=== PATIENT | male | born 1945 | race Caucasian/White ===

== ENCOUNTER → 2018-07-06 | Outpatient (REF) | payer MEDICARE, OTHER ==
[2018-07-06 14:14] LABS: FREE T4 0.81 NG/DL (0.76-1.46); RHEUMATOID FACTOR QUANT < 10.0 IU/ML (<15.0)
[2018-07-06 14:15] LABS: FOLATE 9.3 NG/ML; VITAMIN B12 LEVEL 392 PG/ML
[2018-07-08 13:46] LABS: ALBUMIN 4.07 GM/DL (3.29-5.55); ALBUMIN % 58.2 % (55.8-66.1); ALPHA-1-GLOBULIN % 3.8 % (2.9-4.9); ALPHA-1-GLOBULINS 0.27 GM/DL (0.17-0.41); ALPHA-2-GLOBULINS 0.76 GM/DL (0.42-0.99); ALPHA-2-GLOBULINS % 10.8 % (7.1-11.8); BETA-1-GLOBULINS 0.49 GM/DL (0.28-0.60)
[2018-07-08 13:47] LABS: BETA-2-GLOBULINS 0.31 GM/DL (0.19-0.55); BETA-2-GLOBULINS % 4.4 % (3.2-6.5); GAMMA GLOBULIN % 15.8 % (11.1-18.8); GAMMA GLOBULINS 1.11 GM/DL (0.65-1.58)
[2018-07-09 08:07] LABS: ANTINUCLEAR ANTIBODIES DIRECT Negative (Negative); VITAMIN B1 LEVEL WHOLE BLOOD 110.3 nmol/L (66.5-200.0); VITAMIN B6,PYRIDOXAL PHOSPHATE 7.9 ug/L (5.3-46.7); VITAMIN E(ALPHA TOCOPHEROL) 10.1 mg/L (9.0-29.0); VITAMIN E(GAMMA TOCOPHEROL) 1.5 mg/L (0.5-4.9)
[2018-07-13 10:26] LABS: DRVV SCREEN 45.1 SEC
[2018-07-13 10:28] LABS: PTT LUPUS TYPE ANTICOAG SCREEN 1.1 (0-1.2)
== END ==
LOC: M LABNEURO 09:24
PROVIDERS: ATTEND Psychiatry & Neurology Neurology
DX: G62.9 Polyneuropathy, unspecified (principal); G25.81 Restless legs syndrome

== ENCOUNTER 2020-01-17 13:26 | Inpatient (IN) | payer MEDICARE, BC ==
[~2020-01-17] VITALS: Ht 172.7 cm; Wt 110.0 kg
[2020-01-17 14:07] LABS: BASO % 0.7 % (0.0-1.0); EOS # 0.4 10^3/uL (0.0-0.5); EOS % 6.5 % (0.0-3.0); HEMATOCRIT 47.5 % (42.0-52.0); LYMPH # 1.1 10^3/uL (1.5-5.0); LYMPH % 19.2 % (24.0-44.0); MEAN CORPUSCULAR HEMOGLOBIN 27.5 pg (27.0-33.0); MEAN CORPUSCULAR HGB CONC 31.6 g/dl (32.0-36.5); MONO # 0.4 10^3/uL (0.0-0.8); MONO % 7.9 % (0.0-5.0); NEUTROPHILS # 3.6 10^3/uL (1.5-8.5); NEUTROPHILS % 65.3 % (36.0-66.0); PLATELET COUNT, AUTOMATED 175 10^3/uL (150-450); RED BLOOD COUNT 5.46 10^6/uL (4.30-6.10); WHITE BLOOD COUNT 5.6 10^3/uL (4.0-10.0)
[2020-01-17 14:36] LABS: BLOOD UREA NITROGEN 21 MG/DL (7-18); CALCIUM LEVEL 8.9 MG/DL (8.8-10.2); CARBON DIOXIDE LEVEL 29 MEQ/L (21-32); CHLORIDE LEVEL 109 MEQ/L (98-107); CK-MB VALUE MASS 3.5 NG/ML (<3.6); CPK CREATINE PHOSPHOKINASE 208 U/L (39-308); CREATININE FOR GFR 1.27 MG/DL (0.70-1.30); GLUCOSE, FASTING 147 MG/DL (70-100); MAGNESIUM LEVEL 2.1 MG/DL (1.8-2.4); MB/CK RELATIVE INDEX 1.68 (< OR =4); SODIUM LEVEL 142 MEQ/L (136-145); TROPONIN I < 0.02 NG/ML (< 0.10)
--- NOTE | 2020-01-17 15:14 | REP ---
Clinical: Acute chest pain . Comparison: None . Findings: The mediastinum and cardiac silhouette are stable and within normal limits for portable technique. The lung gonsalez are clear without acute consolidation, effusion, or pneumothorax. Skeletal structures are intact. Impression: No acute cardiopulmonary process appreciated. Electronically Signed by Watson Govea MD 01/17/2020 03:05 P
[2020-01-17] MEDS ORDERED: PRAV20TA2 PO (15:46)
[2020-01-17] MEDS ORDERED: METF-839 PO (15:46)
[2020-01-17] MEDS ORDERED: IBUP80TA PO (15:46)
[2020-01-17] MEDS ORDERED: CITA20TA7 PO (15:46)
[2020-01-17] MEDS ORDERED: AZOP0.2S OU (15:46)
[2020-01-17] MEDS ORDERED: BYST2.5T2 PO (15:46)
[2020-01-17] MEDS ORDERED: ROPI4TAB3 PO (15:46)
[2020-01-17] MEDS ORDERED: DOXA1TAB67 PO (15:46)
[2020-01-17] MEDS ORDERED: TRAV04OPD OU (15:46)
[2020-01-17] MEDS ORDERED: MIRA0.5T PO (15:46)
[2020-01-17] MEDS ORDERED: MAGN400C2 PO (15:46)
[2020-01-17] MEDS ORDERED: FINA5TAB2 PO (15:46)
[2020-01-17] MEDS ORDERED: BYST5TAB2 PO (17:11)
--- NOTE | 2020-01-17 17:58 | ECGEPIP ---
[facility] - ED Test Date: 2020-01-17 Pat Name: ISIAH RODRIGUEZ Department: Room: - Gender: Male Ship Steward: : 1945 Requested By: NEGRA SMITH Order Number: [id number] Reading MD: Yaima Adames Measurements Intervals [place] Rate: 34 P: 1 PA: 332 QRS: -55 QRSD: 117 T: 21 QT: 487 QTc: 368 Interpretive Statements SECOND DEGREE AV BLOCK TYPE II IVCD POSSIBLE LEFT ATRIAL ENLARGEMENT MARKED LEFT AXIS DEVIATION ANTEROSEPTAL MYOCARDIAL INFARCTION, PROBABLY OLD CLINICAL CORRELATION Electronically Signed on 01-17-2020 17:57:53 EDT by Yaima Adames
--- NOTE | 2020-01-17 19:10 | HPEPDOC ---
[facility] Medical History & Physical Date of Admission Jan 17, 2020 Date of Service: Jan 17, 2020 Attending Physician: BRITTA KNOWLES MD History and Physical CHIEF COMPLAINT: Bradycardia HISTORY OF PRESENT ILLNESS: Patient is a 74-year-old male with history of diabetes type 2, hyperlipidemia, hypertension, glaucoma, anxiety, back pain, RLS, BPH who was sent in by primary for bradycardia. Patient was in his usual state of health until 3 weeks prior to admission when, due to leg swelling and shortness of breath, was sent to [facility] for echo and EKG by his primary physician which occurred 2 days prior to admission. At that time reportedly, patient was found to have low heart rate and was told to take half of his Nebivolol. Patient was also told that he is to have a follow-up EKG. . Patient went in for follow-up EKG on day of admission was found to have a low heart rate. Patient was referred to the emergency room for further evaluation and treatment. Patient denies any symptoms including fever, chills, dizziness/lightheadedness, cough, sore throat, chest pain, shortness of breath, nausea, vomiting, abdominal pain, dysuria, diarrhea, leg pain or leg swelling. Of note, patient states that he was told he had a low heart rate in the past. PAST MEDICAL HISTORY: 1. Diabetes type 2 2. Hypertension. 3. Hyperlipidemia. 4. RLS. 5. Chronic back pain 6. Glaucoma. 7. Anxiety. 8. BPH PAST SURGICAL HISTORY: 1. Colectomy with colostomy status post colostomy reversal. 2. Hernia repair. 3., Fistula surgery. SOCIAL HISTORY: Marital status: . Resides in:, Lives with Tobacco use: Former smoker, smokes cigars once in a while ETOH: Occasional alcohol Illicit drug use: Denies any illicit drug use FAMILY HISTORY: ? Familial polyposis, hypertension, diabetes ALLERGIES: Please see below. REVIEW OF SYSTEMS: All pertinent positives and negatives documented as per HPI. All other reviewed ROS negative HOME MEDICATIONS: Please see below. PHYSICAL EXAMINATION: VITAL SIGNS: See below GENERAL APPEARANCE: Well-developed, well-nourished male laying in stretcher, pleasant on interview HEENT: PERRLA, EOMI, OP clear. CARDIOVASCULAR: Valente, normal S1/2 no MRG appreciated. LUNGS: CTA B/L, W/R/R. ABDOMEN: Soft, nontender, nondistended, large midline scar EXTREMITIES: Intact distal pulses, no edema NEUROLOGICAL: Normal speech, no focal deficits appreciated PSYCHIATRIC: AAO 3, normal mood LABORATORY DATA: See below. IMAGING: CXR (my read): clear CP angles, no acute cardiopulmonary disease identified EKnd degree AV block, mobitz type II MICROBIOLOGY: Please see below. ASSESSMENT: Patient is a 74-year-old male with history of diabetes type 2, hyperlipidemia, hypertension, glaucoma, anxiety, back pain, RLS, BPH who was sent in by primary for bradycardia down to 30's with EKG showing 2nd degree heart block, mobitz type II. Pt remains asymptomatic and is scheduled for pacemaker placement tomorrow. . PLAN: #Bradycardia due to secondary heart block, Mobitz type II Admit to inpatient with telemetry Hold beta loren Status post EKG Plan for OR for pacemaker placement tomorrow Atropine, if needed cardiology consult Nothing by mouth after midnight. IVFs #Diabetes Fingerstick glucose Insulin sliding scale ADA/cardiac diet #HTN Trend BP Continue home meds as needed. #HLD Continue home meds #Glaucoma. Continue home meds #Anxiety. Continue home meds #RLS Continue home meds #BPH Continue home meds #Chronic back pain. Continue to monitor Tylenol as needed Vital Signs Vital Signs Date Time Temp Pulse Resp B/P (MAP) Pulse Ox O2 Delivery O2 Flow Rate FiO2 01/17/20 18:11 55 94 01/17/20 15:18 96.8 16 148/86 (106) Room Air Laboratory Data Labs 24H Laboratory Tests 2 01/17/20 13:43: Immature Granulocyte % (Auto) 0.4, Neutrophils (%) (Auto) 65.3, Lymphocytes (%) (Auto) 19.2L, Monocytes (%) (Auto) 7.9H, Eosinophils (%) (Auto) 6.5H, Basophils (%) (Auto) 0.7, Neutrophils # (Auto) 3.6, Lymphocytes # (Auto) 1.1L, Monocytes # (Auto) 0.4, Eosinophils # (Auto) 0.4, Basophils # (Auto) 0.0, Nucleated Red Blood Cells % (auto) 0.0, Anion Gap 4L, Glomerular Filtration Rate 59.0, Calcium Level 8.9, Magnesium Level 2.1, Total Creatine Kinase 208, Creatine Kinase MB 3.5, Creatine Kinase MB Relative Index 1.68, Troponin I < 0.02, Thyroid Stimulating Hormone (TSH) 2.310 CBC/BMP Laboratory Tests 01/17/20 13:43 Home Medications Scheduled Brinzolamide (Azopt) 1% 10ML Drops.susp, 1 DROP OU BID Citalopram Hydrobromide (Citalopram HBr) 20 Mg Tablet, 20 MG PO DAILY Doxazosin Mesylate (Doxazosin) 4 Mg Tablet, 4 MG PO QHS Finasteride (Finasteride) 5 Mg Tablet, 5 MG PO DAILY Magnesium Oxide (Magnesium) 400 Mg Capsule, 400 MG PO DAILY Metformin HCl (Metformin HCl) 500 Mg Tablet, 500 MG PO BID Nebivolol HCl (Bystolic) 5 Mg Tablet, 2.5 MG PO DAILY Pramipexole Di-HCl (Mirapex) 0.5 Mg Tablet, 0.5 MG PO DAILY Pravastatin Sodium (Pravastatin Sodium) 20 Mg Tablet, 20 MG PO QHS Ropinirole HCl (Ropinirole HCl) 4 Mg Tablet, 4 MG PO QHS Travoprost (Travatan Z) 0.004% 2.5ML Drops, 1 DROP OU QHS Scheduled PRN Ibuprofen (Ibuprofen) 800 Mg Tablet, 800 MG PO TID PRN for PAIN Allergies Coded Allergies: amlodipine (Verified Allergy, Intermediate, LEG SWELLING, 01/17/20) hydrochlorothiazide (Verified Allergy, Intermediate, LEG SWELLING, 01/17/20) valsartan (Verified Allergy, Intermediate, LEG SWELLING, 01/17/20) A-FIB/CHADSVASC A-FIB History Current/History of A-Fib/PAF?: No BRITTA KNOWLES MD Jan 17, 2020 18:59
[2020-01-17] MEDS ORDERED: GLUCAGON INJ 1MG VIAL SC PRN (19:30)
[2020-01-17] MEDS ORDERED: DEXTROSE 50% 50 ML SYRINGE IV PRN (19:30)
[2020-01-17] MEDS ORDERED: GLUCOSE 4GM CHEW TABLET PO PRN (19:30)
[2020-01-17] MEDS: HumaLOG INSULIN (NovoLOG) PER UNIT SC SCH (21:00)
[2020-01-17] MEDS: BRINZOLAMIDE 1 % OPHTH SUSP (AZOPT) 10ML OU SCH (21:19)
[2020-01-17] MEDS: LATANOPROST 0.005% OPHTH SOLN 2.5 ML OU SCH (21:20)
[2020-01-17] MEDS: rOPINIRole 2MG TAB PO SCH (21:20)
[2020-01-17] MEDS: PRAVASTATIN 20 MG TAB PO SCH (21:20)
[2020-01-17 22:55] VITALS: BP 146/64
--- NOTE | 2020-01-17 23:50 | CR ---
DATE OF CONSULTATION: 01/17/2020 CARDIOLOGY CONSULTATION REPORT REFERRING INDIVIDUAL: James Milligan, Physician Floor Renovator (verbal request for cardiology consultation by James Milligan Physician Floor Renovator for Mobitz type II second-degree AV block). REASON FOR CONSULTATION: Mobitz type II second-degree AV block. HISTORY OF PRESENT ILLNESS: Mr. Ousmane Unger is a pleasant 74-year-old man with systemic hypertension, obesity, hyperlipidemia, and type 2 diabetes. About 2 weeks ago, he sought medical attention for exertional dyspnea and edema in both legs. He tells me he was placed on a water pill and that resolved his dyspnea and the swelling in his legs. He has been reporting fatigue and tiredness, especially with activity. No presyncope or syncope. No orthostatic lightheadedness. No chest pain or discomfort with or without activity. No palpitations. No embolic events. No intermittent claudication. When he went to see his doctor about 2 weeks ago, he was also noted to have a slow heart rate and an echocardiogram Doppler was ordered and a followup ECG. He was told to reduce the dosage of Bystolic from 5 mg daily to 2.5 mg daily, which he did at that time. He was in for a followup with his provider today and was noted to have a heart rate in the 30s. His last dose of Bisoprolol was yesterday morning (2.5 mg). In the emergency room, he had an electrocardiogram showing sinus rhythm with Mobitz type II second-degree atrioventricular (AV) block with a heart rate of 34 beats per minute (bpm). PAST MEDICAL AND SURGICAL HISTORY: Obesity, type 2 diabetes, systemic hypertension, hyperlipidemia, restless leg syndrome, chronic back pain, glaucoma, anxiety, benign prostatic hypertrophy, colectomy with colostomy, status post colostomy reversal. Hernia repair. Fistula surgery. SOCIAL HISTORY: . Lives with his . Former cigarette smoker. Smokes cigars once in a while. Occasional alcohol. No illicit drug use. FAMILY HISTORY: Systemic hypertension, diabetes, question familial polyposis. REVIEW OF SYSTEMS. Review of systems as per history of the present illness above. All other review of systems questions negative. ADVERSE DRUG REACTIONS: AMLODIPINE, VALSARTAN, HYDROCHLOROTHIAZIDE. MEDICATIONS PRIOR TO ADMISSION: - Azopt one drop both eyes twice a day - citalopram 20 mg by mouth daily - doxazosin 4 mg nightly - finasteride 5 mg daily - ibuprofen 800 mg by mouth three times a day as needed - magnesium oxide 400 mg daily - metformin 500 mg twice a day - nebivolol 2.5 mg daily (last dose yesterday morning) - pramipexole 0.5 mg daily - pravastatin 20 mg nightly - ropinirole 4 mg nightly - travoprost 0.004% one drop both eyes nightly PHYSICAL EXAMINATION: Pleasant obese man who appears his chronologic age, who is not in any respiratory or psychologic distress. Height 68 inches, weight 102.7 kg, body mass index (BMI) 34.4. Temperature 97.9, pulse 56, respiratory rate 18, blood pressure 188/80, oxygen (O2) saturation 95% on room air. No conjunctival pallor, scleral icterus, or xanthomas. Teeth and oral mucosa were not examined due to patient wearing mask for COVID-19 protection. Jugular venous pulsations were at 3 cm. Trachea midline. No palpable thyroid. No nail bed clubbing, cyanosis, or splinter hemorrhages. Stasis dermatitis was present on the skin of both legs. No skin pallor or icterus. Oriented to person, place and time. Mood and affect normal. Curvature of the spine normal. Gait not appropriate to test at this time (patient on bedrest). Gross motor strength and tone appeared normal. No muscle atrophy, fasciculations, or tremors. Respiratory expansion effort was good. No crackles or wheezes. No palpable apex beat. No left parasternal lifts, heaves, thrills, or palpable heart sounds. First heart sound was decreased in intensity. Second heart sound was normal. No S3 or S4. No murmurs appreciated. Carotids were normal in volume and contour and without bruits. No palpable abdominal aorta. No abdominal bruits. Femoral pulses normal. Pedal pulses normal. Trace pitting edema in the distal part of both legs pretibial. No varicose veins. Abdomen was obese, soft, nontender with normal bowel sounds. No hepatosplenomegaly or other organomegaly. Liver span difficult to assess due to abdominal obesity. Stool for occult blood not presently indicated. INVESTIGATIONS: Electrocardiogram 01/17/2020 at 1345 hours shows sinus rhythm with Mobitz type II second-degree AV block with mostly 2:1 AV conduction, ventricular rate 34 beats per minute. QS complexes V1 to V5 suggestive of old anterior wall myocardial infarct. Moderate nonspecific QRS widening. Marked left axis deviation. I have independently visualized the patient's portable AP chest x-ray acquired 01/17/2020 at 2:57 p.m. Appearance of cardiomegaly despite the portable AP technique. No pulmonary vascular redistribution. No interstitial or alveolar edema. No pleural effusions. No pneumothorax. Laboratory work 01/17/2020 at 1343 hours was reviewed: WBC 5.6, hemoglobin 15.0, hematocrit 47.5, platelets 175. Sodium 142, potassium 4.0, chloride 109, CO2 of 29, BUN 21, creatinine 1.27, estimated GFR of 59.0, glucose 147, magnesium 2.1, calcium 8.9, CPK 208, CPK-MB 3.5, troponin I less than 0.02, TSH 2.310. ASSESSMENT AND RECOMMENDATIONS: 1. Mobitz type II second-degree AV block. He has been on a very low dose of beta-loren and has not had any since yesterday morning. I do not believe that the patient's very low dose of beta loren would be responsible for the patient's ongoing Mobitz type II second-degree AV block. He has had recent symptoms suggestive of heart failure and reports exertional fatigue. I explained the second-degree heart block to the patient and explained that this carries with it an increased risk for developing syncope, as well as increased risk of sudden cardiac . Treatment with pacemaker was explained to the patient, including the option of no pacemaker (increased risk of syncope and sudden cardiac without a pacemaker). Risks of pacemaker implantation were explained to the patient, including, but not all inclusive, infection, 1-2%, pneumothorax (1%), bleeding, poor wound healing, lead dislodgement, cardiac dysrhythmias, adverse drug reaction, and cardiac perforation with cardiac tamponade (08/999). The patient was agreeable to undergo implantation of a permanent dual-chamber pacemaker and the plan will be to do this tomorrow afternoon. 2. Systemic hypertension, uncontrolled systolic blood pressure with controlled diastolic blood pressure. At the moment, his antihypertensive medication (Bystolic) is on hold because of Mobitz type II second-degree AV block. He lists adverse drug reactions with amlodipine (leg swelling), hydrochlorothiazide as part of Exforge HCT resulting in leg swelling, valsartan as part of Exforge HCT with a complaint of leg swelling. Once the patient has a permanent pacemaker, the blood pressure control issue can be reassessed. I doubt very much that he is actually truly allergic to valsartan or hydrochlorothiazide. I suspect his complaint of leg swelling with these agents was the calcium channel loren component of Exforge HCT. 3. Hyperlipidemia. Patient is presently on a carbohydrate-consistent diet. 4. Abnormal ECG. ECG findings as described above.
[2020-01-18] VITALS (10 sets, daily range): BP systolic 138–188; BP diastolic 68–80
[2020-01-18] MEDS ORDERED: NS 1,000 ML IV SCH
[2020-01-18] MEDS ORDERED: LR 1,000 ML IV SCH (06:00)
[2020-01-18] MEDS: PRAMIPEXOLE 0.25 MG TAB PO SCH (08:32)
[2020-01-18] MEDS: FINASTERIDE 5 MG TAB PO SCH (08:32)
[2020-01-18] MEDS: HumaLOG INSULIN (NovoLOG) PER UNIT SC SCH ×4 (08:32→20:05)
[2020-01-18] MEDS: CitaloPRAM (CeleXA) 20 MG TAB PO SCH (08:32)
[2020-01-18] MEDS: BRINZOLAMIDE 1 % OPHTH SUSP (AZOPT) 10ML OU SCH ×2 (08:33→22:03)
[2020-01-18] MEDS ORDERED: MUPIROCIN 2% OINT 22 GM TUBE As Ordered ONE (12:53)
[2020-01-18] MEDS ORDERED: LIDOCAINE 1% SDV 30ML VIAL As Ordered ONE (12:53)
[2020-01-18] MEDS ORDERED: VANCOMYCIN 1000MG/20ML VIAL As Ordered ONE ×2 (12:54→16:54)
[2020-01-18] MEDS ORDERED: ISOVUE-300 61% 50ML VIAL As Ordered ONE (12:54)
[2020-01-18] MEDS ORDERED: LIDOCAINE 2% 100MG/5ML SDV (FOR ANES.) As Ordered ONE (13:44)
[2020-01-18] MEDS ORDERED: ONDANSETRON 4MG/2ML VIAL As Ordered ONE (13:44)
[2020-01-18] MEDS ORDERED: MIDAZOLAM INJ 2MG/2ML VIAL (J2250 PER 1MG) As Ordered ONE (13:44)
[2020-01-18] MEDS ORDERED: propofoL 200 MG/20 ML VIAL As Ordered ONE (13:44)
[2020-01-18] MEDS ORDERED: ceFAZolin 2 GM/D5W 50 ML IV BAG (J0690 PER 500MG) As Ordered ONE (14:03)
[2020-01-18] MEDS ORDERED: ceFAZolin SOD 2 GM in IV 1 EA IV ONE (14:30)
[2020-01-18] MEDS ORDERED: KETAMINE HCL 200 MG/20 ML VIAL As Ordered ONE (15:01)
[2020-01-18] MEDS ORDERED: ATROPINE SULF 0.4 MG/ML 1ML VIAL (J0461) As Ordered ONE (15:39)
[2020-01-18] MEDS ORDERED: PHENYLephrine HCL 500 MCG/5 ML (100MCG/ML) SYRINGE (J2370) As Ordered ONE (15:59)
--- NOTE | 2020-01-18 16:55 | REP ---
Clinical: Pacemaker placement. Technique: Intraoperative fluoroscopic imaging using portable C-arm technique. Findings: Dual lead pacemaker identified in satisfactory position. Total fluoroscopic time 6 minutes 43 seconds. Impression: Status post pacemaker placement. Electronically Signed by Watson Govea MD 01/18/2020 04:47 P
--- NOTE | 2020-01-18 17:23 | REP ---
Portable chest x-ray: Sitting AP view. History: Post pacemaker insertion. Comparison chest x-ray January 17, 2020. Findings: A bipolar pacemaker is seen in the right heart via the left side. Skin eboni are noted adjacent to the power plant in the left subclavicular soft tissues. There is no evidence of pneumothorax or hydrothorax. Cardiomediastinal silhouette is unchanged and unremarkable. No infiltrate is seen. Impression: Pacemaker in place. No complications seen. Electronically Signed by Sae Greene MD 01/18/2020 05:14 P
[2020-01-18] MEDS ORDERED: ACETAMINOPHEN TAB 650MG DOSE (2X325MG) PO PRN (17:30)
[2020-01-18] MEDS ORDERED: **hydrALAZINE** 10 MG TAB PO ONE (19:00)
--- NOTE | 2020-01-18 20:06 | IPNPDOC ---
Date Seen The patient was seen on 01/18/20. Progress Note SUBJECTIVE: Patient seen and examined at bedside. Plan for patient to go for placement today. Patient denies any complaints. Denies any symptoms including dizziness, lightheadedness, fevers, chills, chest pain, shortness of breath, nausea, vomiting, abdominal pain. OBJECTIVE PHYSICAL EXAMINATION: VITAL SIGNS: Please see below. GENERAL APPEARANCE: Well-developed, well-nourished male sitting up in bed, pl easant on interview CARDIOVASCULAR: Valente, normal S1/2 no MRG appreciated. LUNGS: CTA B/L, W/R/R. ABDOMEN: Soft, nontender, nondistended, large midline scar EXTREMITIES: Intact distal pulses, no edema NEUROLOGICAL: Normal speech, no focal deficits appreciated PSYCHIATRIC: AAO3, normal mood LABORATORY DATA, IMAGING STUDIES, MICROBIOLOGY: Please see below. ASSESSMENT AND PLAN: Patient is a 74-year-old male with history of diabetes type 2, hyperlipidemia, hypertension, glaucoma, anxiety, back pain, RLS, BPH who was sent in by primary for bradycardia down to 30's with EKG showing 2nd degree heart block, mobitz type II. Pt remains asymptomatic and is scheduled for pacemaker placement today. Pt doing well and awaiting pacemaker. . PLAN: #Bradycardia due to secondary heart block, Mobitz type II Admit to inpatient with telemetry Hold beta loren Status post EKG Plan for OR for pacemaker placement later today Atropine, if needed cardiology consult Nothing by mouth after midnight. IVFs #Diabetes Fingerstick glucose Insulin sliding scale ADA/cardiac diet #HTN Trend BP Continue home meds as needed. #HLD Continue home meds #Glaucoma. Continue home meds #Anxiety. Continue home meds #RLS Continue home meds #BPH Continue home meds #Chronic back pain. Continue to monitor Tylenol as needed DVT PPX: heparin after procedure Disposition: home pending successful pacemaker placement VS, I&O, 24H, Tito Vital Signs/I&O Vital Signs Date Time Temp Pulse Resp B/P (MAP) Pulse Ox O2 Delivery O2 Flow Rate FiO2 01/18/20 19:16 172/74 01/18/20 18:57 97.7 72 18 92 Nasal Cannula 2.0 I&O- Last 24 Hours up to 6 AM 01/18/20 06:00 Intake Total 450 ml Output Total 0 ml Balance 450 ml Laboratory Data 24H LABS Laboratory Tests 2 01/17/20 21:28: Bedside Glucose (Misc Panel) 89 01/18/20 06:36: Bedside Glucose (Misc Panel) 136H 01/18/20 11:25: Bedside Glucose (Misc Panel) 97 01/18/20 17:08: Bedside Glucose (Misc Panel) 82L Microbiology Microbiology 01/18/20 Respiratory Virus Panel (PCR) (NELLI) - Final, Complete BRITTA KNOWLES MD Jan 18, 2020 20:06
[2020-01-18] MEDS: PRAVASTATIN 20 MG TAB PO SCH (22:03)
[2020-01-18] MEDS: LATANOPROST 0.005% OPHTH SOLN 2.5 ML OU SCH (22:03)
[2020-01-18] MEDS: rOPINIRole 2MG TAB PO SCH (22:06)
[2020-01-19] VITALS: BP 148/80
[2020-01-19 04:00] VITALS: BP 148/86
--- NOTE | 2020-01-19 06:53 | RO ---
DATE OF PROCEDURE: 01/18/2020 PREOPERATIVE DIAGNOSIS: Mobitz type II secondary to AV block. POSTOPERATIVE DIAGNOSIS: Mobitz type II secondary to AV block. FINDINGS: Mobitz type II secondary to AV block. PROCEDURE PERFORMED: Implantation of a permanent dual chamber pacemaker ([employer]). SURGEON: James Gonzalez MD CIGARETTE STAMPER: None. ANESTHESIA: Lidocaine 1% local/general anesthesia. SPECIMENS: None. ESTIMATED BLOOD LOSS: 10 mL. BLOOD PRODUCTS REPLACED: None. DRAINS: None. COMPLICATIONS: None. PROCEDURE DESCRIPTION: The patient was prepped and draped over the left pectoral region and 3M Ioban film was applied. Lidocaine 1% was used for local anesthetic. A left subclavian venogram was obtained using a mixture of 50 mL of contrast with 10 mL of normal saline, of which 20 mL of that was injected via a left antecubital vein and was used in real time under fluoroscopic visualization to obtain percutaneous vein access to the extra thoracic portion of the left subclavian vein using a micropuncture needle under. This was then guidewire exchanged for a guidewire that came with one of the 7 Mauritian sheaths. Next, an incision was made approximately 2.5 inches in length 1 cm below the guidewire insertion into the skin using a Peak Plasma blade. The Peak Plasma blade was used to cut through the fatty layer and get down through the Cezar fascia. The pacemaker pocket was then formed in a caudal direction by the prepectoral fascia from the Cezar fascia using blunt dissection using two fingers. The guidewire was then pulled through the skin into the incision site. I then took another micropuncture needle and at the level of the pectoral muscle obtained vein access to the extra thoracic portion of the left subclavian vein using the first guidewire as a fluoroscopic marker. This was guidewire exchanged for a guidewire that came with the other 7 Mauritian sheath. Next, the first 7 Mauritian sheath with introducer was placed over the more lateral of the guidewires and was used for vein access for the ventricle lead. The ventricle lead was placed under fluoroscopic guidance towards the right ventricle apex position where it was secured with a total of 10 turns. This position was found to be electrically and anatomically satisfactory and no diaphragm stimulation could be palpated on either side at 10 volts high output pacing. The 7 Mauritian sheath was broken apart and remoced. The ventricular lead was secured to the pectoral muscle using the supplied tie down sleeve using two individual sutures consisting of #0 Ethibond to secure it to the pectoral muscle. Next, I started to place the other 7 Mauritian sheath over the more medial of the guidewires, but ran into some resistance. Upon checking with fluoroscopy I discovered that the guidewire had pulled up into the left jugular vein. I then removed the 7 Mauritian sheath with its introducer and noticed that the tip of the introducer had become a little bit mangled. I pulled the guidewire back part way under fluoroscopic guidance until the kink was external to the patient's body. I then straightened the kink out manually. I then placed a new 7 Mauritian sheath with new introducer over this guide wire and was successful advancing into the vein. The introducer was removed leaving the [address] This was used for vein access for the right atrial lead. The right atrial lead was placed under fluoroscopic guidance using the help of a preformed J-stylet into the right atrial appendage position where it was secured with a total of 12 turns. This position was found to be electrically and anatomically satisfactory after removal of the J-stylet. The atrial lead was then secured to the pectoral muscle using the supplied tie down sleeve using two individual sutures consisting of #0 Ethibond. Next, I placed another #0 Ethibond suture to the pectoral muscle to serve as the tie down for the pacemaker pulse generator. Next, I took a medium sized TYRX antimicrobial envelope and cut it into 6 pieces which were then placed into the floor of the pacemaker pocket. The terminal pins of the ventricle and atrial leads were plugged into their respective ports in the header of the pacemaker pulse generator and each one was secured by tightening the set screws with the hex screwdriver. The excess lead material was then coiled underneath the pacemaker pulse generator and placed along with the pacemaker pulse generator into the pacemaker pocket with the excess lead material below and pacemaker pulse generator on top. The previously placed #0 Ethibond suture was used to secure the pulse generator to the pectoral muscle. The deep layer was then closed using individual sutures consisting of #2-0 Vicryl. A few additional #3-0 Vicryl sutures were used to help approximate the more superficial layer. The skin was then closed using eboni. The patient tolerated the procedure well without any immediate complications. The incision line was dressed using Bactroban ointment followed by Telfa followed by a bio-occlusive dressing and a left arm sling was applied. The pacemaker pulse generator implanted was a [employer] [facility] MRI, model [id number] with serial number [id number]. The right atrial lead implanted was a [employer], model [id number], 52 cm in length, with serial number [id number]. Final testing in the operating room with the PSA analyzer for the right atrial lead showed a capture threshold of 1.25 volts at 0.6 ms P wave amplitude of 1.6 mV and lead impedance of 460 ohms. The ventricular lead implanted was a [employer], model [id number], 58 cm in length, with serial number [id number]. Final testing in the operating room for the right ventricular lead with the PSA analyzer showed capture threshold of 0.5 volts at 0.4 ms with R wave amplitude of 4.5 mV and lead impedance of 59 ohms.
[2020-01-19 07:40] VITALS: BP 172/88
[2020-01-19] MEDS: BRINZOLAMIDE 1 % OPHTH SUSP (AZOPT) 10ML OU SCH (08:08)
[2020-01-19] MEDS: FINASTERIDE 5 MG TAB PO SCH (08:08)
[2020-01-19] MEDS: CitaloPRAM (CeleXA) 20 MG TAB PO SCH (08:08)
[2020-01-19] MEDS: HumaLOG INSULIN (NovoLOG) PER UNIT SC SCH (08:08)
--- NOTE | 2020-01-19 08:15 | REP ---
Clinical: Postoperative assessment. Technique: PA and lateral. Comparison: 01/18/2020. Findings: Recently placed dual lead pacemaker in stable, satisfactory position. The cardiac silhouette and mediastinum are within normal limits. Lung gonsalez are clear. No consolidation, effusion, or pneumothorax. Skeletal structures intact. Impression: No acute cardiopulmonary process appreciated. Electronically Signed by Watson Govea MD 01/19/2020 08:06 A
[2020-01-19 09:00] VITALS: BP 138/70
[2020-01-19] MEDS: **hydrALAZINE** 10 MG TAB PO ONE ×2 (09:00→10:49)
[2020-01-19] MEDS: PRAMIPEXOLE 0.25 MG TAB PO SCH (10:44)
[2020-01-19 10:58] VITALS: BP 138/70
[2020-01-19 12:00] VITALS: BP 139/68
[2020-01-19] MEDS ORDERED: CANDESARTAN 4MG TABLET PO SCH (12:00)
== END 2020-01-20 | disposition home or self-care (01) | DRG 244 ==
LOC: M ED 13:32 → M ED INP 18:28 → ENRESERV 19:41 → M PCU 22:39
PROVIDERS: ADMIT Internal Medicine; ATTEND Internal Medicine
PROC: 02H63JZ Insertion of Pacemaker Lead into Right Atrium, Percutaneous Approach (ICD-10-PCS; 2020-01-18)
PROC: 02HK3JZ Insertion of Pacemaker Lead into Right Ventricle, Percutaneous Approach (ICD-10-PCS; 2020-01-18)
PROC: 0JH606Z Insertion of Pacemaker, Dual Chamber into Chest Subcutaneous Tissue and Fascia, Open Approach (ICD-10-PCS; principal; 2020-01-18 15:00)
DX: I44.1 Atrioventricular block, second degree (principal); I10 Essential (primary) hypertension; E11.9 Type 2 diabetes mellitus without complications; G25.81 Restless legs syndrome; F41.9 Anxiety disorder, unspecified; N40.0 Benign prostatic hyperplasia without lower urinary tract symptoms; E78.5 Hyperlipidemia, unspecified; M54.5 Low back pain; H40.9 Unspecified glaucoma; Z87.891 Personal history of nicotine dependence; Z79.899 Other long term (current) drug therapy; Z88.8 Allergy status to other drugs, medicaments and biological substances; E66.9 Obesity, unspecified

== ENCOUNTER → 2022-03-11 | Outpatient (REF) ==
[~2022-03-11] MED LIST: AZOP0.2S OU; BYST2.5T2 PO; BYST5TAB2 PO; CITA20TA7 PO; DOXA1TAB67 PO; FINA5TAB2 PO; IBUP80TA PO; MAGN400C2 PO; METF-839 PO; MIRA0.5T PO; PRAV20TA2 PO; ROPI4TAB3 PO; TRAV04OPD OU
== END ==
LOC: M LABCFH 13:05
PROVIDERS: ATTEND Student in an Organized Health Care Education/Training Program
DX: D58.9 Hereditary hemolytic anemia, unspecified (principal)